=== PATIENT | male | born 1960 | race Caucasian/White ===

== ENCOUNTER 2019-06-22 06:40 | Day surgery (SDC) | payer OTHER, SELFPAY ==
--- NOTE | 2019-06-22 | PATH_ITS ---
[facility] Accession Number: [id number] . 01 Material submitted: . sigmoid colon - SIGMOID COLON, 35 CM . 01 Clinical history: . REBIOPSY OF PREVIOUS POLYPECTOMY SITE . 02 Diagnosis: Sigmoid Colon at 35 cm, Biopsy: Portions of serrated lesion x2, cannot exclude sessile serrated adenoma. MRV 06/25/2019 1404 Local . 02 Electronically signed: . Latia Oconnor MD, Pathologist NPI- [id number] . 01 Gross description: . SIGMOID COLON, 35 CM: Received in formalin are 2 fragment(s) of sood, soft tissue measuring 0.1 x 0.1 x 0.1 cm to 0.3 x 0.2 x 0.2 cm submitted entirely in 1 cassette(s) /[facility] 06/22/2019 1908 Local . 02 Pathologist provided ICD-10: K63.5, Z12.11, Z86.010 . 02 CPT . 073077 Performed at: 01 [facility] [address] [facility], [place], [place] [id number] MD Pavel Kinsey MD Phone: [phone] Performed at: 02 [facility] [address] [place], [place] [id number] MD Frannie Lipscomb MD Phone: [phone]
[2019-06-22] MEDS: SODIUM CHLORIDE 0.9% 1,000 ML 200 ML IV (07:18)
[2019-06-22 07:19] VITALS: BP 132/86; PULSE 104; RESP 24; TEMP 36.6; O2SAT 95; BMI 46.4
--- NOTE | 2019-06-22 07:44 | PM.HP.1 ---
History of Present Illness History of Present Illness Date Patient Seen: 06/22/19 Time Patient Seen: 07:45 Chief complaint: [id number] Narrative: This is a 59-year-old man with history of morbid obesity, BMI 46, type 2 diabetes, hypertension, LAKHWINDER, on CPAP, history of colon polyps presenting for surveillance colonoscopy. His last colonoscopy was 5 years ago with multiple polyps found. Since then he has not had any melena or hematochezia, unexplained weight loss, or unexplained abdominal pain. Does have chronic constipation. He says that his diabetes is not well controlled and his hemoglobin A1c is 7.1. Past medical history: Hearing loss History of tobacco use Hyperlipidemia Hypertension Long-term use of insulin Morbid obesity ALKHWINDER Steatosis of liver Type 2 diabetes Hep C Medications: Aspirin 81 mg daily Jardiance 25 mg orally daily in the morning Lantus 32 units subcu b.i.d. Lisinopril 20 mg daily Metformin 500 mg b.i.d. Receive a statin 40 mg daily Trulicity 0.75 mg/0.5 mL subcu solution weekly Past surgical history: Colonoscopy 2016 Colonoscopy 2011 Social history Alcohol 1-2 times per week Former smoker Lives with Allergies: NKDA Family history Denies family history of colorectal cancer ROS: Thirteen system review is otherwise negative other than as mentioned below and in HPI. PE: GENERAL: Alert, comfortable, morbidly obese. Appears stated age. Answers questions promptly and appropriately. Vital signs noted. HENT: Normocephalic, atraumatic. Hearing intact. Oral mucosa is pink and moist. EYES: Conjunctiva pink, sclera white, no periorbital swelling. CARDIOVASCULAR: Regular rate. No pedal edema. RESPIRATORY: Non-tachypneic, breathing comfortably on room air. GASTROINTESTINAL: Abdomen soft and non-distended; rounded, obese GENITALURINARY: No flank tenderness. MUSCULOSKELETAL: Equal tone and mass bilaterally. SKIN: Warm, dry, soft, appropriate color for ethnicity. No other lesions, rashes, or wounds. NEURO: Alert and Oriented X 3. No gross sensory deficits, or cognitive issues. PSYCH: Appropriate affect and mood. Patient History Family & Social History Social History: household members spouse Tobacco & Substance use: Tobacco type cigarettes Smoking Status Former smoker alcohol intake current alcohol intake frequency a few times a month Substance Use Type does not use Meds Home Medications and Allergies Home Medications Medication Instructions Recorded Confirmed Type aspirin 81 mg PO DAILY 06/22/19 06/22/19 History dulaglutide [Trulicity] 0.75 mg SUBCUT QWEEK 06/22/19 06/22/19 History empagliflozin [Jardiance] 10 mg PO DAILY 06/22/19 06/22/19 History insulin glargine [Lantus U-100 34 unit SUBCUT BID 06/22/19 06/22/19 History Insulin] lisinopril 20 mg PO DAILY 06/22/19 06/22/19 History metformin 1,000 mg PO BID 06/22/19 06/22/19 History rosuvastatin [Crestor] 20 mg PO DAILY 06/22/19 06/22/19 History Allergies Allergy/AdvReac Type Severity Reaction Status Date / Time No Known Drug Allergies Allergy Verified 06/22/19 07:28 Exam Vital Signs (past 8 hours): - 06/22/19 07:19 Temperature 98 F Pulse Rate 104 H Respiratory Rate 24 Blood Pressure 132/86 Pulse Oximetry 95 Oxygen Delivery Method Room Air Assessment & Plan Assessment and plan (1) Morbid obesity with BMI of 45.0-49.9, adult: Current visit: Yes Status: Acute (2) Hypertension: Current visit: Yes Status: Acute (3) Poorly controlled diabetes mellitus: Current visit: Yes Status: Acute (4) Insulin dependent diabetes mellitus: Current visit: Yes Status: Acute (5) Hyperlipidemia: Current visit: Yes Status: Acute (6) LAKHWINDER (obstructive sleep apnea): Current visit: Yes Status: Acute (7) Personal history of colonic polyps: Current visit: Yes Status: Acute (8) Chronic constipation: Current visit: Yes Status: Acute Assessment & Plan narrative: This is a 59-year-old man with morbid obesity and personal history of colon polyps. He has poorly controlled type 2 diabetes. I explained to him that he is at increased risk for any procedure due to his morbid obesity and poorly controlled diabetes. Risks and benefits of screening colonoscopy and possible polypectomy were discussed with the patient in detail including risk of bleeding, perforation, need for additional procedures, risks of anesthesia. The patient desires to proceed with the colonoscopy procedure. Time Spent With Patient Time with patient: 15-24 minutes
[2019-06-22] MEDS: MIDAZOLAM 5 MG/5 ML VIAL IV (07:56)
[2019-06-22] MEDS: fentaNYL 250 MCG/5 ML INJ IV (07:56)
--- NOTE | 2019-06-22 08:42 | PM.OP.ENDO ---
Operative Date/Time/Diagnoses Date of procedure: 06/22/19 Time of procedure: 08:42 Pre-op diagnosis: Personal history of advanced colon polyps Post-op diagnosis: same (No new polyp seen on this exam, submucosal lipoma seen in the ascending colon) Procedure & Clinicians Study performed: Colonoscopy, biopsy of tattoo prior polypectomy site in sigmoid colon Same procedure as scheduled: Yes Indications: Personal history of advanced colon polyps, multiple polyps including tubulovillous adenoma with dysplasia on prior scope Surgeon: Aminah Barragan Procedure Notes SCOAP/Timeout: Performed Procedure in detail: The patient was brought to the room and placed in left lateral decubitus position with all bony prominences padded. A time-out was performed and then the patient was given procedural sedation starting with 4 mg of Versed and 100 mcg of fentanyl. Vitals were monitored throughout the procedure and remained stable. Once adequately sedated the procedure was begun. A rectal exam was performed revealing no abnormalities. The colonoscope was then introduced to the rectum and advanced to the cecum in the usual fashion. Unfortunately there was a malfunction in the scope, and the image was 2 dark for an adequate evaluation of the colonic mucosa. The scope was withdrawn, and a new scope was introduced. The of the same Procedure the scope was advanced to the cecum in the usual pattern. The cecum was identified by the appendiceal orifice, the mucosal tri-fold, and the ileocecal valve. The scope was then retracted while rotating side to side and examining each mucosal fold. The mucosa was very redundant. In the ascending colon at 90 cm submucosal lipoma was seen, 3 cm x 3 cm in size. At about 35 cm in the sigmoid colon, attached to the site of his prior polypectomy of tubulovillous adenoma with dysplasia was seen. It appeared to be a simple scar, without recurrence. This was biopsied with cold forceps. At the conclusion of the procedure retroflexion was performed and no significant internal hemorrhoids were seen. The scope was then withdrawn from the rectum the procedure was concluded. The patient tolerated the procedure well and was transferred to the PACU in stable condition. Scope withdrawal time: 9 Sedation minutes: 46 Specimen(s): other (Biopsy of prior polypectomy site) Complications: none Impression: No new polyps were seen, submucosal lipoma at 90 cm, biopsy of old polypectomy site was performed Post-procedure Recommendations: Colonscopy in 5 years (Depending on pathology results) Follow up: as needed Disposition: PACU
[2019-06-22 08:50] VITALS: BP 121/73; PULSE 99; RESP 16; TEMP 37.1; O2SAT 94
== END 2019-06-22 09:05 | disposition home or self-care (01) ==
PROVIDERS: PCP Internal Medicine; Referring Provider Surgery; Visit Provider Surgery
PROC: 0DJD8ZZ Inspection of Lower Intestinal Tract, Via Natural or Artificial Opening Endoscopic (ICD-10-PCS; CPT 45378; principal; 2019-06-22 07:45)
DX: Z12.11 Encounter for screening for malignant neoplasm of colon (principal); Z79.4 Long term (current) use of insulin; Z86.010 Personal history of colon polyps; E11.9 Type 2 diabetes mellitus without complications; G47.33 Obstructive sleep apnea (adult) (pediatric); E78.5 Hyperlipidemia, unspecified; I10 Essential (primary) hypertension; Z68.42 Body mass index [BMI] 45.0-49.9, adult; E66.01 Morbid (severe) obesity due to excess calories; D17.79 Benign lipomatous neoplasm of other sites
CPT/HCPCS: 45380; 99152; 99153; J2250; J3010

== ENCOUNTER → 2021-07-02 11:08 | Outpatient (CLI) | payer OTHER, SELFPAY ==
--- NOTE | 2021-07-02 | DI.RAD.S_ITS ---
PROCEDURE: XR CHEST 2V INDICATIONS: shortness of breath TECHNIQUE: 2 views of the chest were acquired. COMPARISON: None. FINDINGS: Surgical changes and devices: None. Lungs and pleura: Lungs are clear. No pleural effusions or pneumothorax. Mediastinum: Mediastinal contours are normal. Heart size is normal. Bones and chest wall: No suspicious bony abnormalities. Soft tissues appear unremarkable. IMPRESSION: No acute cardiopulmonary abnormality Dictated by: Tres Schmitt M.D. on 07/02/2021 at 11:27 Approved by: Tres Schmitt M.D. on 07/02/2021 at 11:27
== END ==
PROVIDERS: PCP Internal Medicine; Referring Provider Internal Medicine Cardiovascular Disease; Visit Provider Internal Medicine Cardiovascular Disease
DX: R06.02 Shortness of breath (principal)
CPT/HCPCS: 71046

== ENCOUNTER → 2021-09-07 09:50 | Outpatient (CLI) | payer OTHER, SELFPAY ==
[2021-09-07 12:41] LABS: COVID19 -Nasal RAPID Negative (Negative)
== END ==
PROVIDERS: PCP Internal Medicine; Visit Provider Family Medicine Sleep Medicine
DX: Z20.822 Contact with and (suspected) exposure to COVID-19 (principal); Z01.812 Encounter for preprocedural laboratory examination
CPT/HCPCS: 87635; C9803

== ENCOUNTER → 2021-09-09 14:59 | Outpatient (CLI) | payer OTHER, SELFPAY ==
--- NOTE | 2021-09-09 15:47 | PM.TREADMILL ---
Cardiac Stress Test Report Referral & Results Date Patient Seen: 09/09/21 Time Patient Seen: 15:48 Requesting provider: Ann Santizo Indication: Dyspnea Rest ECG: Sinus rhythm Procedure Note: Standard kathy protocol, 5:34 mins, 6.5 METS Reduced exercise capacity, KIM +28% Normal hemodynamic response to exercise. Hypertensive at baseline No chest pain or anginal symptoms No significant ST changes at peak exercise Rare PVCs Target heart rate achieved Impression: Normal exercise stress test Please note: Actual ECG tracings can be found in the PACS system.
--- NOTE | 2021-09-10 19:32 | DI.NM.S_ITS ---
DATE OF SERVICE: 09/09/2021 PROCEDURE PERFORMED: Exercise stress test. INDICATIONS: Shortness of breath. CARDIAC STRESS: The patient underwent exercise stress test under the supervision of an attending staff. The patient walked on Ismael protocol for 5 minutes and 30 seconds, achieved 99 percent of target heart rate. Baseline blood pressure 142/90 mmHg. Peak blood pressure 182/94 mmHg. The patient achieved 6.5 METs of workload and functional aerobic impairment positive 28 percent. The test was terminated due to dyspnea and fatigue. No chest discomfort. Baseline rhythm was sinus. During stress, there were no convincing ischemic changes seen. Some nonspecific ST-T changes seen. The patient had some PVCs and aberrant conduction without any sustained ventricular tachycardia. CONCLUSION: Exercise stress test is negative for inducible ischemia. Diminished exercise tolerance. Mildly hypertensive baseline, otherwise normal hemodynamic response. The patient had shortness of breath and fatigue during stress test. Occasional premature ventricular contractions without any sustained ventricular tachycardia. As far as exercise stress test is concerned, it is a low-risk exercise stress test. Pierce Rios - Valentin/brody doc#: [id number]/job#: [id number] dd: 09/10/2021 17:27:00 dt: 09/10/2021 19:05:00 DICTATING /COPIES TO: Roxann Rondon MD COPIES MNE: DANIELLE;
== END ==
PROVIDERS: PCP Internal Medicine; Referring Provider Internal Medicine Cardiovascular Disease; Visit Provider Internal Medicine Cardiovascular Disease
DX: R06.02 Shortness of breath (principal)
CPT/HCPCS: 93017

== ENCOUNTER → 2021-09-24 09:48 | Outpatient (CLI) | payer OTHER, SELFPAY ==
[2021-09-24 11:05] LABS: COVID19 -Nasal RAPID Negative (Negative)
== END ==
PROVIDERS: PCP Internal Medicine; Referring Provider Internal Medicine; Visit Provider Internal Medicine
DX: Z20.822 Contact with and (suspected) exposure to COVID-19 (principal)
CPT/HCPCS: 87635; C9803

== ENCOUNTER → 2021-09-24 09:50 | Outpatient (CLI) | payer OTHER, SELFPAY ==
--- NOTE | 2021-09-24 09:51 | DI.ECHO.S_ITS ---
[place] +---------+ : : [address] : : : : [id number] : : : : Phone: [phone]+ Echocardiogram Report + + :Name: HUNTER SWAIN Study Date: 09/24/2021 Height: 65 in : :[facility] ReadingLocation: Weight: 274 lb : : Gender: Male BSA: 2.3 m2 : :: 1960 Age: 61 yrs BP: 143/88 mmHg: :Reason For Study: SHORTNESS OF BREATH : :Ordering Physician: CHRISTIE, : :AMEENA Performed By: Ebony Boogie : :Referring: AMEENA SANTIZO : + + Interpretation Summary 1) Normal left ventricular thickness, size, wall motion, and systolic function (EF 60-65%). 2) Grossly, normal right ventricular size and function. 3) No significant valvular abnormalities. 4) No prior Echo available for comparison. Procedure: A two-dimensional transthoracic echocardiogram with color flow and Doppler was performed. The study quality was technically adequate. There is no prior echocardiogram noted for this patient. The patient was in sinus rhythm with heart rates between 89-94 bpm during the exam. Left Ventricle: The left ventricle is normal in size and wall thickness. The ejection fraction is estimated to be 60-65%. Left ventricular systolic function appears normal without focal wall motion abnormalities. Right Ventricle: The right ventricle is not well visualized. The right ventricle is grossly normal size. The right ventricular systolic function is normal. Atria: The left atrial size is normal. Right atrial size is normal. There is no Doppler evidence for an interatrial shunt. Mitral Valve: The mitral valve is normal in structure and function. There is trace mitral regurgitation. Aortic Valve: The aortic valve is trileaflet. The aortic valve opens well. There is no aortic valve stenosis. No aortic regurgitation is present. Tricuspid Valve: The tricuspid valve is normal in structure and function. There is trace tricuspid regurgitation. Pulmonic Valve: The pulmonic valve is not well seen, but is grossly normal. There is no pulmonic valvular regurgitation. Great Vessels: The aortic root is normal size. The dimensions of the ascending aorta are normal. The IVC is of normal diameter and collapses greater than 50% with a sniff. This suggests a low right atrial pressure of 3 mm Hg. Pericardium/ Pleura There is no pericardial effusion. There is no pleural effusion. MMode/2D Measurements & Calculations LVIDd: 5.0 cm LVOT diam: 2.1 cm LVIDs: 3.5 cm Ao root diam: 3.4 cm FS: 29.9 % asc Aorta Diam: 3.4 cm IVSd: 0.96 cm Ao Arch Diam (Prox Trans): 2.8 cm LVPWd: 0.95 cm LV osorio. diameter/BSA (cm/m^2): 2.2 LV sys. diameter/BSA (cm/m^2): 1.6 LA A2 area: 18.7 cm2 RA long axis: 5.3 cm LA A4 area: 18.3 cm2 RA area: 15.1 cm2 LA length (vol): 5.9 cm RA vol: 36.4 ml LA vol: 49.5 ml RA : 16.1 ml/m2 LA vol index: 21.9 ml/m2 IVC diam: 1.5 cm TAPSE: 2.3 cm Doppler Measurements & Calculations Ao V2 max: 144.6 cm/sec LVOT Max Naveed: 110.8 cm/sec Ao V2 mean: 97.2 cm/sec LV V1 max P.9 mmHg Ao max P.4 mmHg LV V1 VTI: 19.7 cm Ao mean P.4 mmHg ANGEL(I,D): 2.8 cm2 Ao V2 VTI: 24.4 cm ANGEL(V,D): 2.6 cm2 sev ratio: 0.81 ANGEL indexed to BSA (cm^2/m^2): 1.2 MV E max naveed: 68.6 cm/sec PA V2 max: 98.5 cm/sec MV A max naveed: 70.4 cm/sec PA V2 mean: 66.4 cm/sec MV E/A: 0.97 PA mean P.0 mmHg Med Peak E' Naveed: 6.9 cm/sec PA pr(Accel): 44.7 mmHg E/E' med: 9.9 Lat Peak E' Naveed: 7.8 cm/sec E/E' lat: 8.8 E/e' average: 9.3 MV dec time: 0.26 sec SV(LVOT): 68.0 ml Reading Physician:01:01 PM
--- NOTE | 2021-09-30 09:36 | P.PFT.S_ITS ---
Pulmonary Function Test Referral & Results Date Patient Seen: 09/24/21 Requesting provider: Ann Santizo Results: The spirometry demonstrates an FVC of 3.18 L which is 81% of predicted. The FEV1 was measured at 2.44 L which is 83% of predicted. The FEV1/FVC ratio was 77 which is 102% of predicted. Following the administration of bronchodilator there was a 41% improvement in FEF 25-75%. Lung volumes show an SVC of 2.93 L which is 73% of predicted. The maximum voluntary ventilation was reduced Interpretation: This study demonstrates perhaps very mild obstructive lung disease based on m inimal reduction FEV1 although FEV1/FVC ratio is preserved there is evidence of some very minimal benefit following bronchodilator particularly small airway flow based on improvement in FEF 25-75%. However shape a flow volume loop is not really supportive of the presence of obstructive lung disease There is a minimal reduction in lung volumes suggesting minimal restrictive lung disease which probably explains the abnormality of the FEV1 above No diffusing capacity was performed
== END ==
PROVIDERS: PCP Internal Medicine; Referring Provider Internal Medicine Cardiovascular Disease; Visit Provider Internal Medicine Cardiovascular Disease
DX: R06.02 Shortness of breath (principal)
CPT/HCPCS: 93306; 94060; 94726

== ENCOUNTER → 2021-09-24 11:23 | Outpatient (CLI) | payer OTHER, SELFPAY ==
--- NOTE | 2021-10-10 10:13 | PM.PFT.1 ---
Pulmonary Function Test Referral & Results Date Patient Seen: 09/24/21 Requesting provider: Ann Santizo Results: The spirometry demonstrates an FVC of 3.18 L which is 81% of predicted. The FEV1 was measured at 2.44 L which is 83% of predicted. The FEV1/FVC ratio was 77 which is 102% of predicted. Following the administration of bronchodilator there was 9% improvement in FEV1 and a 41% improvement in FEF 25-75%. Lung volumes show an SVC of 2.93 L which is 73% of predicted. The maximum voluntary ventilation was reduced Interpretation: This study demonstrates perhaps mild obstructive lung disease based on reduction FEV1 although FEV1/FVC ratio is preserved. There is some limited evidence of benefit following bronchodilator administration but shape a flow volume loop probably does not support the presence of obstructive lung disease of any significance There is a mild reduction in lung volumes suggesting mild restrictive lung disease which may well explain the abnormality in the FEV1 above Clinical correlation suggested
== END ==
PROVIDERS: PCP Internal Medicine; Referring Provider Internal Medicine Cardiovascular Disease; Visit Provider Internal Medicine Cardiovascular Disease
DX: R06.02 Shortness of breath (principal); Z20.822 Contact with and (suspected) exposure to COVID-19
CPT/HCPCS: 87635; 93306; 94060; 94726; 94729; C9803

== ENCOUNTER 2021-10-05 09:00 | Emergency (ER) | payer OTHER, SELFPAY ==
[2021-10-05] VITALS (14 sets, daily range): BP systolic 155–174; BP diastolic 75–94; PULSE 86–102; RESP 18; TEMP 36.4; O2SAT 93–97; BMI 45.4
--- NOTE | 2021-10-05 09:41 | ED_ITS ---
HPI - Back Pain/Injury General Chief Complaint: Back Pain/Injury Stated Complaint: severe pain lower back-poss kidney stones Time Seen by Provider: 10/05/21 09:41 Source: patient History of Present Illness HPI Narrative: 61-year-old gentleman with a history of diabetes, hypertension hyperlipidemia who presents with 10 days of right flank pain. Initially pain had been bothering him and then he had a bowel movement and that seemed that it improved however over the last 7 days it is again increased and now he describes it as a sharp constant pain in the right flank. He is not describing fevers, cough, chills, chest pain, palpitations, cough. He does note that he has been having regular bowel movements and does not feel that he is constipated. He has no dysuria and no obvious hematuria appreciated Related Data Home Medications Medication Instructions Recorded Confirmed aspirin 81 mg tablet,delayed 81 mg PO DAILY 06/22/19 06/22/19 release dulaglutide 0.75 mg/0.5 mL 0.75 mg SUBCUT QWEEK 06/22/19 06/22/19 subcutaneous pen injector (Trulicity) empagliflozin 10 mg tablet 10 mg PO DAILY 06/22/19 06/22/19 (Jardiance) insulin glargine 100 unit/mL 34 unit SUBCUT BID 06/22/19 06/22/19 subcutaneous solution (Lantus U-100 Insulin) lisinopril 20 mg tablet 20 mg PO DAILY 06/22/19 06/22/19 metformin 1,000 mg tablet 1,000 mg PO BID 06/22/19 06/22/19 rosuvastatin 20 mg tablet (Crestor) 20 mg PO DAILY 06/22/19 06/22/19 Previous Rx's Medication Instructions Recorded oxycodone-acetaminophen 5 mg-325 1 tab PO Q6H PRN pain #14 tabs 10/05/21 mg tablet tamsulosin 0.4 mg capsule 0.4 mg PO DAILY #30 caps 10/05/21 Allergies Allergy/AdvReac Type Severity Reaction Status Date / Time No Known Drug Allergies Allergy Verified 10/05/21 09:13 Review of Systems Review of Systems Narrative: Remainder of complete review of systems is otherwise unremarkable except for that included in the HPI. Patient History Medical History (Updated 10/05/21 @ 14:33 by Lisa Mathis MD) Hyperlipidemia Hypertension Insulin dependent diabetes mellitus Morbid obesity with BMI of 45.0-49.9, adult LAKHWINDER (obstructive sleep apnea) Social History household members: spouse Smoking Status: Former smoker alcohol intake: current Smoking Status: Former smoker alcohol intake frequency: a few times a month Substance Use Type: does not use Exam Initial Vital Signs Initial Vital Signs: Vital Signs Pulse Rate 102 H 10/05/21 09:09 Pulse Oximetry 93 10/05/21 09:09 General: Morbidly obese but in no acute distress. Able to give a complete and coherent history. HEENT: Moist mucous membranes, normal sclera with reactive pupils, Respiratory: Lungs are clear to auscultation, no wheezing no rales no rhonchi. Full and symmetrical air movement Cardiac: Regular rate and rhythm no murmurs no bruits Abdomen: Soft, nontender, good bowel tones, mild right flank pain Skin: Warm and dry, no rashes specifically over the area of tenderness Neurologic: Grossly neurologically intact with no obvious asymmetries or abnormalities Extremities: No trauma, well perfused Psych: Cooperative, appropriate insight and affect Course Orders Ordered: ED Orders 10/05/21 09:30 Complete Blood Count AUTO DIFF Stat Comprehensive Metabolic Panel Stat Lipase Stat 10/05/21 11:55 CT kidney ureter bladder (KUB) Stat Vital Signs Vital signs: Vital Signs - 8 hr 10/05/21 09:13 10/05/21 09:09 10/05/21 09:10 Temperature 97.6 F Pulse Rate 97 H 102 H 97 H Respiratory Rate 18 Blood Pressure 160/84 H Pulse Oximetry 95 93 94 Oxygen Delivery Method Room Air 10/05/21 09:10 10/05/21 09:30 10/05/21 10:00 Temperature Pulse Rate 91 H 88 Respiratory Rate Blood Pressure 160/84 H Pulse Oximetry 97 96 Oxygen Delivery Method 10/05/21 10:30 10/05/21 11:00 10/05/21 11:00 Temperature Pulse Rate 88 101 H Respiratory Rate Blood Pressure 155/75 H Pulse Oximetry 95 94 Oxygen Delivery Method MDM - Back Pain/Injury Lab Data Result diagrams: 10/05/21 09:30 10/05/21 09:30 Labs: Lab Results 10/05/21 10/05/21 Range/Units 09:30 09:30 WBC 4.8 (4.5-11.0) X10^3/uL RBC 4.79 (4.5-5.9) X10^6/uL Hgb 13.7 (13.5-17.5) g/dL Hct 41.2 (41-53) % MCV 86.0 (80-100) fL MCH 28.6 (26-34) PG MCHC 33.3 (30-36) % RDW 14.0 (11.6-14.8) % Plt Count 112 L (150-400) X10^3/uL Neut % (Auto) 71.0 (50-75) % Lymph % (Auto) 19.5 L (25-40) % [place] % (Auto) 7.5 (3-14) % Eos % (Auto) 1.5 L (2-4) % Baso % (Auto) 0.5 (0-2) % Neut # (Auto) 3400 (7545-6717) /uL Lymph # (Auto) 900 L (4416-5746) /uL [place] # (Auto) 400 (0-900) /uL Eos # (Auto) 100 (0-450) /uL Baso # (Auto) 0 (0-100) /uL Sodium 138 (137-145) mmol/L Potassium 4.3 (3.4-5.1) mmol/L Chloride 104 (98-107) mmol/L Carbon Dioxide 28 (22-32) mmol/L BUN 15 (9-20) mg/dL Creatinine 1.02 (0.66-1.25) mg/dL Estimated GFR > 60 (>60) mL/min BUN/Creatinine Ratio 14.7 (6-22) Glucose 311 H (80-110) mg/dL Calcium 8.8 (8.4-10.2) mg/dL Total Bilirubin 0.5 (0.2-1.3) mg/dL AST 36 (17-59) IU/L ALT 39 (<50) IU/L Alkaline Phosphatase 146 H (38-126) U/L Total Protein 6.5 (6.3-8.2) g/dL Albumin 4.2 (3.5-5.0) g/dL Globulin 2.3 (1.7-4.1) g/dL Albumin/Globulin Ratio 1.8 (1.0-2.8) Lipase 94 (23-300) U/L Urine Dip Bedside Urine Glucose 1000 mg/dl Bedside Urine Bilirubin - Negative Bedside Urine Ketone - Negative Urine Specific [place] 1.015 Bedside Urine Occult Blood - Negative Bedside Urine pH 6.0 Bedside Urine Protein - Negative Bedside Urine Urobilinogen +/- 1mg Bedside Urine Nitrite - Negative Bedside Urine Leukocytes - Negative Esterase Imaging Data CT scan - abdomen/pelvis: Radiologist's Impression: FINDINGS:? Image quality:? Excellent.? ? Lung bases:? Atelectasis/scarring in anterior aspect of left lung base is seen. Heart:? No significant findings. ? URINARY: Right Kidney:? No stones are seen.? Prominence of right renal pelvis is seen extending to the level of right UPJ. Right Ureter:? No hydroureter. ? Left Kidney:? No stones or hydronephrosis. Left Ureter:? No hydroureter. ? Bladder:? Normal wall thickness. No stones. ? ? ? ABDOMEN: Liver:? Unremarkable.? ? Gallbladder:? Within normal limits. Biliary ducts:? Unremarkable.? ? Pancreas:? Unremarkable.? ? Spleen:? Unremarkable.? ? Adrenal Glands:? Unremarkable.? ? ? Stomach and Bowel:? Stomach, small bowel loops, and colon are unremarkable.? Appendix is visualized and is within normal limits.? Mild fecal stasis in the colon is seen. Peritoneum:? No abnormal intraperitoneal fluid.? No free air.? ? Ventral Wall: ? No hernia.? Abdominal Nodes:? No enlarged retroperitoneal or mesenteric lymph nodes.? Vessels:? Aorta and inferior vena cava are normal in size.? ? PELVIS: Pelvic Organs:? Unremarkable.? ? Pelvic Nodes: Unremarkable. Miscellaneous: No inguinal hernias are seen. ? ? ? Bones:? No suspicious bony lesion.? No acute vertebral body compression fracture. ? IMPRESSION:? ? 1. No calcified renal stone is seen.? Prominence of right renal collecting system to the level of right UPJ without obstructing stone or ureteral stone.? No hydroureter.? Finding could represent right UPJ stenosis suggest clinical correlation.? No left-sided stones or hydronephrosis.? No left-sided hydroureter.? Urinary bladder is within normal limits. 2.? No bowel obstruction or abnormal bowel wall thickening.? Normal appendix.? Mild constipation.? No free fluid or free air. 3. Mild left basilar atelectasis/scarring.? ? ? Dictated by: Jeffry Manuel M.D. on 10/05/2021 at 12:46? ?? MDM Narrative Medical decision making narrative: 61-year-old gentleman with 10 days of right flank pain. No evidence of sepsis, infection, appendicitis, no obvious stones or obstructing masses. Does have prominence of the right renal collecting system to the level of the right UPJ with no obvious explanation for such. He does have a moderate amount of stool loading but it does appear that he is managing this appropriately and I do not think constipation is the cause of his right flank pain. Appointment for follow-up is scheduled with Dr. Burnham, urology on Tuesday at 10:15 a.m.. Will also ask the patient to begin Flomax daily to see if this may help with draining the right ureteral system. Findings reviewed with patient and he is safe for home discharge. Will give him a brief course of Percocet to help with severe pain and will also ask him to use daily MiraLax given his chronic constipation issues already. Discharge Plan Departure Patient Disposition: Home Clinical Impression: Hydronephrosis due to obstruction of ureteral orifice Instructions: Hydronephrosis -- Adult Activity Restrictions/Additional Instructions: Thank you for coming in today You do not have an obvious kidney stone it does not look like he recently passed 1. There are no masses, tumors or other things that seem to be pressing on the ureter. The ureter is the tube that goes from the kidney to the bladder. It looks like the ureter is dilated on that side which makes me wonder if there is a stricture or tightening just as that tube enters into the bladder which is causing urine to backup which is causing your pain. You have an appointment with Dr. Burnham, our urologist scheduled on Tuesday at 10:15 a.m. in the morning. He will help sort through all of these issues If you are having significant pain, you can use 1 Percocet every 6 hours. With the amount of constipation that you are already experiencing, I do want you to start the MiraLax that you have at home. Will be even more important to do so if you choose to use any of the narcotic medication If you find that you are getting worse or develop any new symptoms, please feel free to return to the emergency department for further evaluation. Prescriptions: New tamsulosin 0.4 mg capsule 0.4 mg PO DAILY Qty: 30 0RF oxycodone-acetaminophen 5-325 mg tablet 1 tab PO Q6H PRN (Reason: pain) Qty: 14 0RF No Action Lantus U-100 Insulin 100 unit/mL Solution 34 unit SUBCUT BID lisinopril 20 mg Tablet 20 mg PO DAILY aspirin 81 mg Tablet,Delayed Release (Dr/Ec) 81 mg PO DAILY metformin 1,000 mg Tablet 1,000 mg PO BID rosuvastatin [Crestor] 20 mg Tablet 20 mg PO DAILY Jardiance 10 mg Tablet 10 mg PO DAILY Trulicity 0.75 mg/0.5 mL Pen Injector 0.75 mg SUBCUT QWEEK Referrals: Angela Varghese MD [Primary Care Provider] - Fernandez Burnham MD [Physician] -
[2021-10-05 09:58] LABS: Add Manual Diff / Slide Review NO; Basophils Absolute Auto 0 /uL (0-100); Basophils Percent Auto 0.5 % (0-2); Eosinophils Absolute Auto 100 /uL (0-450); Eosinophils Percent Auto 1.5 % (2-4); Hematocrit 41.2 % (41-53); Hemoglobin 13.7 g/dL (13.5-17.5); Lymphocytes Absolute Auto 900 /uL (1100-4500); Lymphocytes Percent Auto 19.5 % (25-40); Mean Corpuscular HGB Conc 33.3 % (30-36); Mean Corpuscular Hemoglobin 28.6 PG (26-34); Monocytes Absolute Auto 400 /uL (0-900); Monocytes Percent Auto 7.5 % (3-14); Neutrophils Absolute Auto 3400 /uL (1500-7000); Platelet Count 112 X10^3/uL (150-400); Red Blood Cell Count 4.79 X10^6/uL (4.5-5.9); White Blood Cell Count 4.8 X10^3/uL (4.5-11.0)
[2021-10-05 10:10] LABS: Alanine Aminotransferase 39 IU/L (<50); Albumin 4.2 g/dL (3.5-5.0); Albumin Globulin Ratio 1.8 (1.0-2.8); Alkaline Phosphatase 146 U/L (38-126); Aspartate Aminotransferase 36 IU/L (17-59); BUN Creatinine Ratio 14.7 (6-22); Bilirubin Total 0.5 mg/dL (0.2-1.3); Blood Urea Nitrogen 15 mg/dL (9-20); Calcium 8.8 mg/dL (8.4-10.2); Carbon Dioxide 28 mmol/L (22-32); Chloride 104 mmol/L (98-107); Estimated Glomerular Filt Rate > 60 mL/min (>60); Globulin 2.3 g/dL (1.7-4.1); Glucose 311 mg/dL (80-110); HEMOLYSIS 21 (0-50); Lipase 94 U/L (23-300); Potassium 4.3 mmol/L (3.4-5.1); Sodium 138 mmol/L (137-145); Total Protein 6.5 g/dL (6.3-8.2)
--- NOTE | 2021-10-05 11:55 | DI.CT.S_ITS ---
PROCEDURE: CT KIDNEY URETER BLADDER (KUB) INDICATIONS: right flank pain, ? stone TECHNIQUE: Axial sections were acquired from the lung bases to the pubic symphysis. Coronal and sagittal reformats were performed. For radiation dose reduction, the following was used: automated exposure control, adjustment of mA and/or kV according to patient size. COMPARISON: None. FINDINGS: Image quality: Excellent. Lung bases: Atelectasis/scarring in anterior aspect of left lung base is seen. Heart: No significant findings. URINARY: Right Kidney: No stones are seen. Prominence of right renal pelvis is seen extending to the level of right UPJ. Right Ureter: No hydroureter. Left Kidney: No stones or hydronephrosis. Left Ureter: No hydroureter. Bladder: Normal wall thickness. No stones. ABDOMEN: Liver: Unremarkable. Gallbladder: Within normal limits. Biliary ducts: Unremarkable. Pancreas: Unremarkable. Spleen: Unremarkable. Adrenal Glands: Unremarkable. Stomach and Bowel: Stomach, small bowel loops, and colon are unremarkable. Appendix is visualized and is within normal limits. Mild fecal stasis in the colon is seen. Peritoneum: No abnormal intraperitoneal fluid. No free air. Ventral Wall: No hernia. Abdominal Nodes: No enlarged retroperitoneal or mesenteric lymph nodes. Vessels: Aorta and inferior vena cava are normal in size. PELVIS: Pelvic Organs: Unremarkable. Pelvic Nodes: Unremarkable. Miscellaneous: No inguinal hernias are seen. Bones: No suspicious bony lesion. No acute vertebral body compression fracture. IMPRESSION: 1. No calcified renal stone is seen. Prominence of right renal collecting system to the level of right UPJ without obstructing stone or ureteral stone. No hydroureter. Finding could represent right UPJ stenosis suggest clinical correlation. No left-sided stones or hydronephrosis. No left-sided hydroureter. Urinary bladder is within normal limits. 2. No bowel obstruction or abnormal bowel wall thickening. Normal appendix. Mild constipation. No free fluid or free air. 3. Mild left basilar atelectasis/scarring. Dictated by: Jeffry Manuel M.D. on 10/05/2021 at 12:46 Approved by: Jeffry Manuel M.D. on 10/05/2021 at 12:49
== END 2021-10-05 14:51 | disposition home or self-care (01) ==
PROVIDERS: Emergency Provider Emergency Medicine; PCP Internal Medicine
DX: N13.1 Hydronephrosis with ureteral stricture, not elsewhere classified (principal)
CPT/HCPCS: 36415; 74176; 80053; 81003; 83690; 85025; 99283

== ENCOUNTER 2023-02-21 10:48 | Emergency (ER) | payer OTHER, SELFPAY ==
[2023-02-21 11:12] VITALS: BP 135/76; PULSE 96; RESP 20; TEMP 36.9; O2SAT 96; BMI 51.5
--- NOTE | 2023-02-21 13:02 | PC.NURSE ---
patient states that he fell and hit his knee last Tuesday and three days prior this visit is when he noticed his right leg starting to hurt. He can't wear pants because his legs hurt.
--- NOTE | 2023-02-21 13:42 | ED.SKABFB ---
HPI - Skin/Abscess/Foreign Bdy <Jaja Gonzalez PA-C - Last Filed: 02/21/23 13:47> General Chief complaint: Skin/Abscess/Foreign Body Stated complaint: celulitus on RT leg Time Seen by Provider: 02/21/23 13:06 Source: patient Mode of arrival: Ambulatory History of Present Illness HPI narrative: 62-year-old male with past medical history diabetes, eczema presents to the ED with 3 days of right lower leg redness. Patient states he has eczema, therefore scratches quite a bit. Patient denies fevers, chills, chest pain, shortness of breath, nausea, vomiting, numbness, tingling, weakness. Patient notes that the redness has been spreading on his right lower leg. Patient has also noted some redness on his left lower leg. Related Data Home Medications Medication Instructions Recorded Confirmed aspirin 81 mg tablet,delayed 81 mg PO DAILY 06/22/19 06/22/19 release dulaglutide 0.75 mg/0.5 mL 0.75 mg SUBCUT QWEEK 06/22/19 06/22/19 subcutaneous pen injector (Trulicity) empagliflozin 10 mg tablet 10 mg PO DAILY 06/22/19 06/22/19 (Jardiance) insulin glargine 100 unit/mL 34 unit SUBCUT BID 06/22/19 06/22/19 subcutaneous solution (Lantus U-100 Insulin) lisinopril 20 mg tablet 20 mg PO DAILY 06/22/19 06/22/19 metformin 1,000 mg tablet 1,000 mg PO BID 06/22/19 06/22/19 rosuvastatin 20 mg tablet (Crestor) 20 mg PO DAILY 06/22/19 06/22/19 Previous Rx's Medication Instructions Recorded oxycodone-acetaminophen 5 mg-325 1 tab PO Q6H PRN pain #14 tabs 10/05/21 mg tablet polyethylene glycol 3350 17 17 g PO DAILY #510 grams 10/05/21 gram/dose oral powder (Miralax) tamsulosin 0.4 mg capsule 0.4 mg PO DAILY #30 caps 10/05/21 Allergies Allergy/AdvReac Type Severity Reaction Status Date / Time No Known Drug Allergies Allergy Verified 02/21/23 11:16 Review of Systems <Jaja Gonzalez PA-C - Last Filed: 02/21/23 13:47> Constitutional Constitutional: Denies chills, Denies fatigue, Denies fever(s), Denies frequent falls, Denies lethargy and Denies weakness Eyes Eyes: Denies change in vision, Denies eye discharge, Denies irritation and Denies loss of vision ENT Ears, Nose, Mouth, and Throat: Denies change in voice, Denies dizziness, Denies neck pain, Denies sore throat and Denies throat swelling Cardiovascular Cardiovascular: Denies chest pain, Denies irregular heart rhythm, Denies lightheadedness, Denies palpitations, Denies dyspnea, Denies dyspnea on exertion and Denies orthopnea Respiratory Respiratory: Denies cough, Denies dyspnea, Denies dyspnea on exertion and Denies wheezing Gastrointestinal Gastrointestinal: Denies abdominal pain, Denies change in bowel habits, Denies diarrhea, Denies nausea and Denies vomiting Musculoskeletal Musculoskeletal: Denies neck pain and Denies numbness Integumentary/Breasts Skin/Breast: Denies pruritus, Denies erythema, Denies rash and Denies wounds Comments: Right lower leg redness Neurologic Neurologic: Denies behavioral changes, Denies confusion, Denies dizziness, Denies frequent falls, Denies loss of vision, Denies numbness and Denies weakness Psychiatric Psychiatric: Denies anxiety, Denies behavioral changes, Denies confusion, Denies depression, Denies homicidal ideation and Denies suicidal ideation Endocrine Endocrine: Denies fatigue, Denies flushing and Denies palpitations Hematologic/Lymphatic Hematologic/Lymphatic: Denies easy bruising Allergic/Immunologic Allergic/Immunologic: Denies urticaria, Denies throat swelling and Denies wheezing Patient History <Jaja Gonzalez PA-C - Last Filed: 02/21/23 13:47> Medical History LAKHWINDER (obstructive sleep apnea) Hyperlipidemia Insulin dependent diabetes mellitus Hypertension Morbid obesity with BMI of 45.0-49.9, adult Social History household members: spouse Smoking Status: Former smoker alcohol intake: current Smoking Status: Former smoker alcohol intake frequency: holidays/special occasions only Substance Use Type: does not use Exam <Jaja Gonzalez PA-C - Last Filed: 02/21/23 13:47> Narrative Exam Narrative: Const General:?cooperative, healthy appearing and comfortable [facility] Head:?normal to inspection Ears:?hearing grossly normal bilaterally Nose:?external nose normal Face and sinus:?normal facial exam and sinuses nontender Mouth:?oral mucosae normal Throat:?posterior oropharynx normal Eyes General:?appearance normal, both eyes and all related structures Neck Neck:?normal visual inspection and no lymphadenopathy noted Resp Effort & Inspection:?normal respiratory effort Auscultation:?clear to auscultation bilaterally Cardio Rate:?regular rate Rhythm:?regular rhythm Integumentary Right lower leg with erythema extending from above the ankle to below the knee. No exudates or discharge. Strength and sensation is intact. Full range of motion. Patient is neurovascularly intact. Left leg with mild erythema. Neuro General:?patient alert, patient awake and patient oriented x3 Initial Vital Signs Initial Vital Signs: Vital Signs Temperature 98.5 F 02/21/23 11:12 Pulse Rate 96 H 02/21/23 11:12 Respiratory Rate 20 02/21/23 11:12 Blood Pressure 135/76 02/21/23 11:12 Pulse Oximetry 96 02/21/23 11:12 Oxygen Delivery Method Room Air 02/21/23 11:12 <Dilma Garza DO - Last Filed: 03/01/23 22:42> Initial Vital Signs Initial Vital Signs: Vital Signs Temperature 98.5 F 02/21/23 11:12 Pulse Rate 96 H 02/21/23 11:12 Respiratory Rate 20 02/21/23 11:12 Blood Pressure 135/76 02/21/23 11:12 Pulse Oximetry 96 02/21/23 11:12 Oxygen Delivery Method Room Air 02/21/23 11:12 Course <Jaja Gonzalez PA-C - Last Filed: 02/21/23 13:47> Vital Signs Vital signs: Vital Signs - 8 hr 02/21/23 11:12 Temperature 98.5 F Pulse Rate 96 H Respiratory Rate 20 Blood Pressure 135/76 Pulse Oximetry 96 Oxygen Delivery Method Room Air <Dilma Garza DO - Last Filed: 03/01/23 22:42> Vital Signs Vital signs: Vital Signs - 8 hr 02/21/23 11:12 Temperature 98.5 F Pulse Rate 96 H Respiratory Rate 20 Blood Pressure 135/76 Pulse Oximetry 96 Oxygen Delivery Method Room Air MDM - Skin/Abscess/Foreign Bdy <Jaja Gonzalez PA-C - Last Filed: 02/21/23 13:47> MDM Narrative Medical decision making narrative: 62-year-old male with past medical history diabetes, eczema presents to the ED with 3 days of right lower leg redness. History and physical exam most consistent with cellulitis. Prescribed antibiotics. Recommend follow-up with PCP as soon as possible. ED return precautions discussed with patient. Patient verbalized understanding. Medical records reviewed: Yes Discharge Plan Departure Patient Disposition: Home Clinical Impression: Cellulitis Instructions: DI for Cellulitis -- Adult Activity Restrictions/Additional Instructions: You were evaluated in the ED today for redness in your right leg. Your symptoms are likely due to a skin infection/cellulitis for which you are being prescribed antibiotics. Please take those as prescribed. Please follow-up with your primary care doctor as soon as possible. Return to the ED if your worsening symptoms, numbness, tingling, weakness, fever, chills, persistent vomiting. Prescriptions: No Action Lantus U-100 Insulin 100 unit/mL Solution 34 unit SUBCUT BID lisinopril 20 mg Tablet 20 mg PO DAILY aspirin 81 mg Tablet,Delayed Release (Dr/Ec) 81 mg PO DAILY metformin 1,000 mg Tablet 1,000 mg PO BID rosuvastatin [Crestor] 20 mg Tablet 20 mg PO DAILY Jardiance 10 mg Tablet 10 mg PO DAILY Trulicity 0.75 mg/0.5 mL Pen Injector 0.75 mg SUBCUT QWEEK tamsulosin 0.4 mg capsule 0.4 mg PO DAILY Qty: 30 0RF oxycodone-acetaminophen 5-325 mg tablet 1 tab PO Q6H PRN (Reason: pain) Qty: 14 0RF polyethylene glycol 3350 [Miralax] 17 gram/dose powder 17 g PO DAILY Qty: 510 1RF Referrals: Provider,Mary Jo BROCK [Primary Care Provider] - Stand Alone Forms: Patient Portal/API ED Sign-out <Dilma Garza DO - Last Filed: 03/01/23 22:42> Cosign ED Attending Cosignature Attestation: I was immediately available in the department for consultation.
[2023-02-21 13:53] VITALS: BP 133/68; PULSE 90; RESP 14; O2SAT 94
== END 2023-02-21 13:54 | disposition home or self-care (01) ==
PROVIDERS: Emergency Provider Student in an Organized Health Care Education/Training Program
DX: L03.115 Cellulitis of right lower limb (principal)
CPT/HCPCS: 99281; 99283